=== PATIENT | male | born 1985 | race Caucasian/White ===

== ENCOUNTER 2016-10-23 14:56 | Emergency (ER) | payer BC ==
[~2016-10-23] VITALS: Ht 190.5 cm; Wt 122.5 kg
[~2016-10-23 14:56] MED LIST: CIPR-225 PO; DICY20TA10; LISI1TAB10; METR500T PO; ONDA4TAB10
--- NOTE | 2016-10-23 18:06 | ED EENT ---
History of Present Illness General Chief Complaint: Oral/Throat Problems Stated Complaint: STREP SYMPTOMS Nursing Triage Note: Pt c/o sore throat x2 days. Pt reporting he thinks he may have strep throat and would like a strep culture done. Source: patient Exam Limitations: no limitations (VIOLETTE ROBERTS) History of Present Illness Time seen by provider: 18:06 Initial Comments patient seen, evaluated, and patient care provided by Dr. Newby. (VIOLETTE ROBERTS) Time seen by provider: 17:55 Initial Comments C/O SORE THROAT X 2 DAYS HAD SUBJECTIVE FEVER AT 0500 THIS AM NO OTHER SYMPTOMS HAS NOT TAKEN ANYTHING FOR SYMPTOMS HAS HISTORY OF "STREP" AND THIS FEELS THE SAME PT STATES HE WAS TREATED 3-4 WEEKS AGO FOR POSSIBLE DIVERTICULITIS WITH UNKNOWN ANTIBIOTICS--NO CT DONE, THOSE SYMPTOMS HAVE RESOLVED. PCP: FERMÍN (CORNELIA NEWBY DO) Allergies and Home Medications Allergies Coded Allergies: No Known Drug Allergies (Unverified , 09/17/15) Home Medications Amoxicillin/Potassium Clav 1 Each Tablet, 1 EACH PO BID, #20 Prescribed by: CORNELIA NEWBY on 10/23/16 1826 Ciprofloxacin HCl 500 Mg Tablet, 500 MG PO BID, #14 Prescribed by: STIVEN WEBBER on 09/17/15 1449 Dicyclomine HCl 20 Mg Tablet, #30 (Reported) Lisinopril/Hydrochlorothiazide 1 Each Tablet, #90 (Reported) Metronidazole 500 Mg Tablet, 500 MG PO TID, #21 Prescribed by: STIVEN WEBBER on 09/17/15 1449 Ondansetron HCl 4 Mg Tablet, #10 (Reported) Review of Systems Constitutional: see HPI, chills, fever Eyes: No Symptoms Reported Ears: No Symptoms Reported Nose: no symptoms reported Mouth: no symptoms reported Throat: see HPI, pain, denies neck stiffness, denies hoarse, denies muffled, painful swallowing, denies difficulty with fluids Respiratory: no symptoms reported, No cough, No short of breath Cardiovascular: no symptoms reported Gastrointestinal: no symptoms reported, No abdominal pain, No diarrhea, No nausea, No vomiting Musculoskeletal: no symptoms reported, No muscle pain Skin: no symptoms reported, No rash Neurological: No Symptoms Reported Hematologic/Lymphatic: No Symptoms Reported Immunological/Allergic: no symptoms reported (CORNELIA NEWBY DO) Past Yklfqur-Lgtaia-Sxwcxo Hx Patient Social History Alcohol Use: Denies Use Recreational Drug Use: No Smoking Status: Never a Smoker Recent Foreign Travel: No Contact w/Someone Who Travel: No Recent Infectious Disease Expo: No (VIOLETTE ROBERTS) Alcohol Use: Denies Use Recreational Drug Use: No Smoking Status: Never a Smoker (WENDY,CORNELIA K DO) Surgeries HX Surgeries: No (VIOLETTE ROBERTS) HX Surgeries: No (WENDY,CORNELIA K DO) Respiratory Hx Respiratory Disorders: No (VIOLETTE ROBERTS) Hx Respiratory Disorders: No (WENDY,CORNELIA K DO) Cardiovascular Hx Cardiac Disorders: Yes Cardiac Disorders: Hypertension (VIOLETTE ROBERTS) Hx Cardiac Disorders: Yes Cardiac Disorders: Hypertension (WENDY,CORNELIA K DO) Neurological Hx Neurological Disorders: No (VIOLETTE ROBERTS) Hx Neurological Disorders: No (WENDY,CORNELIA K DO) Reproductive System Hx Reproductive Disorders: No (WENDY,CORNELIA K DO) Genitourinary Hx Genitourinary Disorders: No (WENDY,CORNELIA K DO) Gastrointestinal Hx Gastrointestinal Disorders: Yes (DIARRHEA ) (VIOLETTE ROBERTS) Hx Gastrointestinal Disorders: No (POSSIBLE DIVERTICULITIS--NO CT DONE, PER PT) (WENDY,CORNELIA K DO) Musculoskeletal Hx Musculoskeletal Disorders: Yes Musculoskeletal Disorders: Back Injury (VIOLETTE ROBERTS) Hx Musculoskeletal Disorders: No (WENDY,CORNELIA K DO) Endocrine Hx Endocrine Disorders: No (VIOLETTE ROBERTS) Hx Endocrine Disorders: No (WENDY,CORNELIA K DO) HEENT HX ENT Disorders: Yes (OCCASIONAL "STREP") (WENDY,CORNELIA K DO) Cancer Hx Cancer: No (VIOLETTE ROBERTS) Hx Cancer: No (WENDY,CORNELIA K DO) Psychosocial Hx Psychiatric Problems: Yes Behavioral Health Disorders: ADD/ADHD (VIOLETTE ROBERTS) Hx Psychiatric Problems: No (WENDY,CORNELIA K DO) Integumentary HX Skin/Integumentary Disorder: No (WENDY,CORNELIA K DO) Blood Transfusions Hx Blood Disorders: No (WENDY,CORNELIA K DO) Physical Exam Vital Signs Vital Sign - Last 12Hours 10/23/16 15:28 Temp 100.5 Pulse 121 Resp 18 B/P (MAP) 112/74 Pulse Ox 96 O2 Delivery Room Air (CORNELIA NEWBY DO) General Appearance: WD/WN, no apparent distress Eyes: bilateral eye EOMI, bilateral eye PERRL, bilateral eye normal inspection Ears: bilateral ear other (TM'S PINK BILATERALLY) Nose: normal inspection Mouth/Throat: No tonsillar exudate, No trismus, No uvula swelling, No voice changes, other (PHARYNX ERYTHEMATOUS) Neck: non-tender, full range of motion, supple, lymphadenopathy (R) (MILD ANTERIOR), lymphadenopathy (L) (MILD ANTERIOR) Cardiovascular: regular rate, rhythm, no edema, no murmur Respiratory: normal breath sounds, no respiratory distress, no accessory muscle use Gastrointestinal: normal bowel sounds, non tender, soft, no organomegaly 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, no motor/sensory deficits, alert, normal mood/affect, oriented x 3 Skin: normal color, warm/dry, No rash (CORNELIA NEWBY DO) Progress/Results/Core Measures Results/Orders Lab Results Laboratory Tests Test 10/23/16 17:47 Range/Units Group A Streptococcus Screen NEGATIVE NEGATIVE (CORNELIA NEWBY DO) My Orders Orders - WENDYCORNELIA Griselda DO Amoxicillin/Clavulanate Tablet (Augmenti (10/23/16 18:30) Amoxicillin/Clavulanate Tablet (Augmenti (10/23/16 18:25) (CORNELIA NEWBY ) Vital Signs/I&O Vital Sign - Last 12Hours 10/23/16 15:28 Temp 100.5 Pulse 121 Resp 18 B/P (MAP) 112/74 Pulse Ox 96 O2 Delivery Room Air (CORNELIA NEWBY DO) Blood Pressure Mean: 87 Departure Impression Impression: Primary Impression: Pharyngitis Disposition: 01 HOME, SELF-CARE Condition: Stable Departure-Patient Inst. Referrals: [facility] (PCP/Family) Primary Care Physician Patient Instructions: Sore Throat, Adult (DC) Add. Discharge Instructions: ALTERNATE TYLENOL AND MOTRIN EVERY 2-3 HOURS NEEDED FOR PAIN OR FEVER LOTS OF CLEAR LIQUIDS FREQUENT SALT WATER GARGLES FOLLOW UP WITH [facility] IN 3-4 DAYS IF NO BETTER All discharge instructions reviewed with patient and/or family. Voiced understanding. Scripts Amoxicillin/Potassium Clav (Augmentin 875-125 Tablet) 1 Each Tablet 1 EACH PO BID for INFECTION, #20 TAB Prov: CORNELIA NEWBY DO 10/23/16 VIOLETTE ROBERTS Oct 23, 2016 18:06 CORNELIA NEWBY DO Oct 23, 2016 18:26
[2016-10-23] MEDS ORDERED: AUGMENTIN 875 MG TAB (AMOXICILLIN/CLAVULANATE) ONE (18:25)
[2016-10-23] MEDS ORDERED: AMOX-358 PO (18:26)
[2016-10-23] MEDS ORDERED: AUGMENTIN 875 MG TAB (AMOXICILLIN/CLAVULANATE) PO SCH (18:30)
[2016-10-23 18:34] VITALS: BP 120/69
== END 2016-10-23 18:34 | disposition home or self-care (01) ==
LOC: EDUNIT# 14:56 → ER 14:57
DX: J02.9 Acute pharyngitis, unspecified (principal); F90.9 Attention-deficit hyperactivity disorder, unspecified type; I10 Essential (primary) hypertension; Z87.828 Personal history of other (healed) physical injury and trauma
CPT/HCPCS: 87430; 99283

== ENCOUNTER → 2017-03-10 | Outpatient (CLI) | payer BC ==
[~2017-03-10] MED LIST changes: +AMOX-358 PO
--- NOTE | 2017-03-10 15:02 | Diagnostic Imaging Report ---
PROCEDURE: MRI lumbar spine. TECHNIQUE: Multiplanar, multisequence MRI of the lumbar spine was performed without contrast. INDICATION: Chronic low back pain radiating into right leg. FINDINGS: Good alignment of the vertebral bodies. Body height is well maintained. Marrow signal is normal throughout. No evidence of pars defect. The conus medullaris and cauda equina appear normal. There is no bony spinal stenosis. L1-L2, L2-L3 discs appear normal. No evidence of facet or ligamentous hypertrophy. L3-L4: There is desiccation of the disc. There is mild central disc herniation which is causing midline ventral extradural compression. No significant encroachment is seen into the lateral recesses or neural foramen. L4-L5: There is a central radial tear causing midline ventral extradural compression. This does not extend into the lateral recesses at this time. No significant facet or ligamentous hypertrophy. L5-S1: Disc appears normal. Facets are normal. Paraspinal soft tissues appear normal. IMPRESSION: 1. There are central disc herniations with radial tears at L3-L4 and L4-L5. This is slightly more prominent at the L4-L5 level. Dictated by: Dictated on workstation # [id number]
== END ==
LOC: RAD 13:54
PROVIDERS: ATTEND Nurse Practitioner Community Health
DX: S33.5XXA Sprain of ligaments of lumbar spine, initial encounter (principal); M51.26 Other intervertebral disc displacement, lumbar region
CPT/HCPCS: 72148

== ENCOUNTER 2018-01-14 17:23 | Emergency (ER) | payer BC ==
[~2018-01-14] VITALS: Ht 177.8 cm; Wt 97.5 kg
[~2018-01-14 17:23] MED LIST changes: -LISI1TAB10; +LISI1TAB10 PO
[2018-01-14] MEDS ORDERED: ONDANSETRON 4 MG/2 ML (SDV) Z0FRAN IVP ONE (17:45)
[2018-01-14] MEDS ORDERED: NS IV 1000 ML 1,000 ML IV ONE (17:45)
--- NOTE | 2018-01-14 17:57 | ED Abdominal Pain ---
General Chief Complaint: Abdominal/GI Problems Stated Complaint: STOMACH PAIN,NAUSEA,VOMITTING Nursing Triage Note: pt reports he woke up this morning with burning in his right upper abd. he is concerned it is his gallbladder, as he has had a HIDA scan approx 1-2 months ago that showed low function. has also been exposed to gi virus at home. reports one episode of dry heaving. multiple episodes of slimey diarrhea. Sepsis Screen: No Definite Risk Source of Information: Patient, Old Records Exam Limitations: No Limitations (LISA CA MD) History of Present Illness Date Seen by Provider: Jan 14, 2018 Time Seen by Provider: 17:34 Initial Comments This 32-year-old gentleman presents to the emergency room with complaints of nausea, vomiting, diarrhea, and right upper quadrant pain. He has been having intermittent episodes for the past 6-8 months. He had a hepatobiliary scan performed in November which showed a decreased ejection fraction. Pain does seem to occur more often after eating, especially fatty or greasy foods. He states his children had a gastrointestinal illness over recently. However, he believes this to be a "gallbladder attack." Patient last had a Gatorade at 17: 10. His last solid foods were yesterday. This episode of pain started yesterday. Patient states his diarrhea is "slime". His vomiting has become dry heaving. He denies any alcohol or tobacco use. He is notably tachycardic on assessment. His primary care provider is Philip Torrez. (LISA CA MD) Allergies and Home Medications Allergies Coded Allergies: No Known Drug Allergies (Unverified , 09/17/15) Home Medications Lisinopril/Hydrochlorothiazide 1 Each Tablet, 1 TAB PO DAILY, (Reported) Patient Home Medication List Home Medication List Reviewed: Yes (LISA CA MD) Home Medication List Reviewed: Yes (SWATHI CUMMINGS) Review of Systems Review of Systems Constitutional: no symptoms reported EENTM: No Symptoms Reported Respiratory: No Symptoms Reported Cardiovascular: See HPI Gastrointestinal: See HPI Genitourinary: No Symptoms Reported Musculoskeletal: no symptoms reported Skin: no symptoms reported Psychiatric/Neurological: No Symptoms Reported Endocrine: No Symptoms Reported Hematologic/Lymphatic: No Symptoms Reported (LISA CA MD) Past Cwuyhnr-Tiexxq-Ssphvs Hx Past Med/Social Hx: Reviewed and Corrections made (LISA CA MD) Patient Social History Alcohol Use: Denies Use Recreational Drug Use: No Smoking Status: Never a Smoker Recent Foreign Travel: No Contact w/Someone Who Travel: No Recent Infectious Disease Expo: No Recent Hopitalizations: No (LISA CA MD) Seasonal Allergies Seasonal Allergies: No (LISA CA MD) Past Medical History Surgeries: No Respiratory: No Cardiac: Yes Hypertension Neurological: No Reproductive Disorders: No Gastrointestinal: Yes Gall Bladder Disease (biliary dyskinesia) Musculoskeletal: Yes Back Injury Endocrine: No Cancer: No Psychosocial: Yes ADD/ADHD Integumentary: No Blood Disorders: No (LISA CA MD) Physical Exam Vital Signs Vital Signs - First Documented 01/14/18 17:36 Temp 97.0 Pulse 131 Resp 20 B/P (MAP) 118/90 (99) Pulse Ox 97 O2 Delivery Room Air (SWATHI CUMMINGS) Vital Signs Capillary Refill : Less Than 3 Seconds (LISA CA MD) Height/Weight/BMI Height: 5'10.00" Weight: 215lbs. oz. 97.183964eo; BMI Method:Estimated General Appearance: WD/WN, mild distress HEENT: PERRL/EOMI, normal ENT inspection, pharynx normal Neck: normal inspection Respiratory: lungs clear, normal breath sounds, no respiratory distress, no accessory muscle use Cardiovascular: no edema, no murmur, tachycardia Gastrointestinal: normal bowel sounds, soft, tenderness (right upper quadrant tender to percussion and palpation) Extremities: normal inspection, no pedal edema Neurologic/Psychiatric: litigation legal assistant II-XII nml as tested, no motor/sensory deficits, alert, normal mood/affect, oriented x 3 Skin: normal color, warm/dry (LISA CA MD) Progress/Results/Core Measures Results/Orders Lab Results Laboratory Tests Test 01/14/18 17:52 01/14/18 18:00 Range/Units Urine Color YELLOW Urine Clarity CLEAR Urine pH 5 5-9 Urine Specific Harper 1.020 1.016-1.022 Urine Protein NEGATIVE NEGATIVE Urine Glucose (UA) NEGATIVE NEGATIVE Urine Ketones NEGATIVE NEGATIVE Urine Nitrite NEGATIVE NEGATIVE Urine Bilirubin NEGATIVE NEGATIVE Urine Urobilinogen NORMAL NORMAL MG/DL Urine Leukocyte Esterase NEGATIVE NEGATIVE Urine RBC (Auto) NEGATIVE NEGATIVE Urine RBC NONE /HPF Urine WBC NONE /HPF Urine Crystals NONE /LPF Urine Bacteria NEGATIVE /HPF Urine Casts NONE /LPF Urine Mucus LARGE H /LPF Urine Culture Indicated NO White Blood Count 10.4 4.3-11.0 10^3/uL Red Blood Count 5.27 4.35-5.85 10^6/uL Hemoglobin 16.4 13.3-17.7 G/DL Hematocrit 45 40-54 % Mean Corpuscular Volume 85 80-99 FL Mean Corpuscular Hemoglobin 31 25-34 PG Mean Corpuscular Hemoglobin Concent 37 H 32-36 G/DL Red Cell Distribution Width 12.9 10.0-14.5 % Platelet Count 282 130-400 10^3/uL Mean Platelet Volume 10.1 7.4-10.4 FL Neutrophils (%) (Auto) 88 H 42-75 % Lymphocytes (%) (Auto) 6 L 12-44 % Monocytes (%) (Auto) 5 0-12 % Eosinophils (%) (Auto) 0 0-10 % Basophils (%) (Auto) 0 0-10 % Neutrophils # (Auto) 9.2 H 1.8-7.8 X 10^3 Lymphocytes # (Auto) 0.6 L 1.0-4.0 X 10^3 Monocytes # (Auto) 0.5 0.0-1.0 X 10^3 Eosinophils # (Auto) 0.0 0.0-0.3 10^3/uL Basophils # (Auto) 0.0 0.0-0.1 10^3/uL Neutrophils % (Manual) 85 % Lymphocytes % (Manual) 11 % Monocytes % (Manual) 3 % Eosinophils % (Manual) 1 % Sodium Level 135 135-145 MMOL/L Potassium Level 4.1 3.6-5.0 MMOL/L Chloride Level 103 98-107 MMOL/L Carbon Dioxide Level 19 L 21-32 MMOL/L Anion Gap 13 5-14 MMOL/L Blood Urea Nitrogen 16 7-18 MG/DL Creatinine 1.06 0.60-1.30 MG/DL Estimat Glomerular Filtration Rate > 60 BUN/Creatinine Ratio 15 Glucose Level 138 H 70-105 MG/DL Calcium Level 9.8 8.5-10.1 MG/DL Corrected Calcium 8.5-10.1 MG/DL Total Bilirubin 0.9 0.1-1.0 MG/DL Aspartate Amino Transf (AST/SGOT) 35 H 5-34 U/L Alanine Aminotransferase (ALT/SGPT) 66 H 0-55 U/L Alkaline Phosphatase 76 40-136 U/L C-Reactive Protein High Sensitivity 0.94 H 0.00-0.50 MG/DL Total Protein 8.2 6.4-8.2 GM/DL Albumin 5.0 H 3.2-4.5 GM/DL Lipase 25 8-78 U/L (SWATHI CUMMINGS) My Orders Orders - SWATHI CUMMINGS Pantoprazole Injection (Protonix Injecti (01/14/18 19:15) Us Gallbladder 44084 (01/14/18 19:09) (SWATHI CUMMINGS) Medications Given in ED Current Medications Medications Dose Ordered Sig/Ernesto Route Start Time Stop Time Status Last Admin Dose Admin Ondansetron HCl 8 mg ONCE ONCE IVP 01/14/18 17:45 01/14/18 17:47 DC 01/14/18 18:04 8 MG Sodium Chloride 1,000 ml @ 0 mls/hr Q0M ONCE IV 01/14/18 17:45 01/14/18 17:47 DC 01/14/18 18:04 0 MLS/HR (SWATHI CUMMINGS) Vital Signs/I&O 01/14/18 17:36 Temp 97.0 Pulse 131 Resp 20 B/P (MAP) 118/90 (99) Pulse Ox 97 O2 Delivery Room Air (SWATHI CUMMINGS) Blood Pressure Mean: 99 Progress Progress Note : Time: 18:00 Progress Note Patient seen and examined. Chart reviewed. Zofran was ordered for treatment of nausea. Patient declines pain medications at this time. Lab workup is underway. IV fluids are infusing. Care of this patient is being transitioned to Dr. Cummings at this time. (LISA CA MD) Progress Note : Time: 19:10 Progress Note Care of the patient was assumed at shift change. Patient is resting comfortably 5 out of 10 pain not requesting anything for pain medicine. He's gotten some nausea medicine and he says his nausea is better. We reviewed his labs with him and discussed having him follow up either with general surgery tomorrow or his primary care doctor. Patient is not comfortable with the history of gallbladder dyskinesis and would like ultrasound done tonight and while his white count is not asserted elevated it is at the upper limit of normal. His pain still localizes to his right upper quadrant. We'll perform an ultrasound of the gallbladder and if it looks normal this would most likely then be just gastroenteritis that should resolve on its own over the next 3-5 days with symptomatic support. Upon further discussion the patient is decided he does not want the ultrasound is okay with the follow-up outpatient plan. (SWATHI CUMMINGS) Diagnostic Imaging Diagonstic Imaging: Ultrasound Plain Films/CT/US/NM/MRI: abdomen (right upper quadrant) Reviewed: Reviewed by Me (SWATHI CUMMINGS) Departure Impression Primary Impression: Gastroenteritis and colitis, viral Additional Impression: Biliary dyskinesia Disposition: 01 HOME, SELF-CARE Condition: Stable Departure-Patient Inst. Decision time for Depature: 19:14 (SWATHI CUMMINGS) Referrals: JOSH WILLIAMSON MD (PCP) Primary Care Physician BRIANNA TORREZ (Family) Primary Care Physician Patient Instructions: [id number] Add. Discharge Instructions: Use the Zofran 1 tablet every 6 hours as needed for nausea. If you're having pain you can take Tylenol 1000 mg or ibuprofen 800 mg. Take some omeprazole or pantoprazole daily for the next couple days to help with acid reflux. See your primary care provider this week for follow-up. If your symptoms become intractable despite the medicines or you begin to have fevers above 102.5 you should get in to be seen the same day or you can return to the ER for evaluation. All discharge instructions reviewed with patient and/or family. Voiced understanding. Scripts Ondansetron (Ondansetron Odt) 4 Mg Tab.rapdis 4 MG PO Q6H PRN for NAUSEA/VOMITING, #8 TAB 0 Refills Prov: SWATHI CUMMINGS 01/14/18 Work/School Note: Work Release Form Date Seen in the Emergency Department: Jan 14, 2018 Return to Work: Jan 16, 2018 Restrictions: No Restrictions Copy Copies To 1: ALEXA BARRON JOSHUA T MD Jan 14, 2018 17:57 SWATHI CUMMINGS Jan 14, 2018 19:12
[2018-01-14 17:58] LABS: BILIRUBIN,URINE NEGATIVE (NEGATIVE); CLARITY,URINE CLEAR; COLOR,URINE YELLOW; GLUCOSE, URINE (UA) NEGATIVE (NEGATIVE); KETONES,URINE NEGATIVE (NEGATIVE); LEUKOCYTE ESTERASE ,URINE NEGATIVE (NEGATIVE); NITRITE,URINE NEGATIVE (NEGATIVE); PH,URINE 5 (5-9); PROTEIN,URINE NEGATIVE (NEGATIVE); UROBILINOGEN,URINE NORMAL (NORMAL)
[2018-01-14 18:09] LABS: BASOPHILS % (AUTO) 0 % (0-10); EOSINOPHILS % (AUTO) 0 % (0-10); HEMATOCRIT 45 % (40-54); HEMOGLOBIN 16.4 G/DL (13.3-17.7); LYMPHOCYTES # (AUTO) 0.6 X 10^3 (1.0-4.0); LYMPHOCYTES % (AUTO) 6 % (12-44); MEAN CORPUSCULAR HEMOGLOBIN 31 PG (25-34); MEAN CORPUSCULAR HGB CONC 37 G/DL (32-36); MEAN CORPUSCULAR VOLUME 85 FL (80-99); MEAN PLATELET VOLUME 10.1 FL (7.4-10.4); MONOCYTES # (AUTO) 0.5 X 10^3 (0.0-1.0); MONOCYTES % (AUTO) 5 % (0-12); NEUTROPHILS # (AUTO) 9.2 X 10^3 (1.8-7.8); NEUTROPHILS % (AUTO) 88 % (42-75); PLATELET COUNT 282 10^3/uL (130-400); RED BLOOD COUNT 5.27 10^6/uL (4.35-5.85); RED CELL DISTRIBUTION WIDTH 12.9 % (10.0-14.5); WHITE BLOOD COUNT 10.4 10^3/uL (4.3-11.0)
[2018-01-14 18:25] LABS: BACTERIA,URINE NEGATIVE /HPF
[2018-01-14 18:27] LABS: ALANINE AMINOTRANSFERASE 66 U/L (0-55); ALKALINE PHOSPHATASE 76 U/L (40-136); BILIRUBIN,TOTAL 0.9 MG/DL (0.1-1.0); BUN/CREATININE RATIO 15; CALCIUM 9.8 MG/DL (8.5-10.1); CARBON DIOXIDE 19 MMOL/L (21-32); CHLORIDE 103 MMOL/L (98-107); CREATININE SERUM 1.06 MG/DL (0.60-1.30); GFR ESTIMATED > 60; GLUCOSE 138 MG/DL (70-105); LIPASE 25 U/L (8-78); POTASSIUM 4.1 MMOL/L (3.6-5.0); SODIUM 135 MMOL/L (135-145); TOTAL PROTEIN 8.2 GM/DL (6.4-8.2)
[2018-01-14 18:49] LABS: EOSINOPHILS % (MANUAL) 1 %; LYMPHOCYTES % (MANUAL) 11 %; MONOCYTES % (MANUAL) 3 %; NEUTROPHILS % (MANUAL) 85 %
[2018-01-14] MEDS ORDERED: PANTOPRAZOLE 40 MG (PROTONIX) VIAL IV ONE (19:15)
[2018-01-14] MEDS ORDERED: ONDA4TAB11 PO (19:16)
[2018-01-14] MEDS ORDERED: RX-ONDANSETRON 4 MG ODT (ZOFRAN) PPK #4 PO STA (19:18)
[2018-01-14 19:32] VITALS: BP 142/89
== END 2018-01-14 19:32 | disposition home or self-care (01) ==
LOC: EDUNIT# 17:23 → ER 17:25
DX: A08.4 Viral intestinal infection, unspecified (principal); K82.8 Other specified diseases of gallbladder; I10 Essential (primary) hypertension; F90.9 Attention-deficit hyperactivity disorder, unspecified type; Z87.448 Personal history of other diseases of urinary system; Z87.19 Personal history of other diseases of the digestive system
CPT/HCPCS: 36415; 80053; 81000; 83690; 85007; 85027; 86141; 96374

== ENCOUNTER → 2019-04-12 | Outpatient (CLI) | payer BC ==
[~2019-04-12] MED LIST changes: +ONDA4TAB11 PO
--- NOTE | 2019-04-12 09:35 | Diagnostic Imaging Report ---
PROCEDURE: MRI lumbar spine. TECHNIQUE: Multiplanar, multisequence MRI of the lumbar spine was performed without contrast. INDICATION: Chronic low back pain. Correlation is made with prior MRI from 03/10/2017. FINDINGS: Curvature and alignment of the lumbar spine is normal. Vertebral body heights are maintained. The marrow signal intensity is unremarkable. No geographic marrow lesion or fracture is detected. There is some disc desiccation L3-L4 and L4-L5 levels compatible with degenerative disc disease. This is similar to prior exam. Remaining lumbar discs demonstrate normal height and hydration. The conus is unremarkable at the L1 level. T12-L1: No central canal or neural foraminal narrowing is detected. L1-T2: No central canal or neural foraminal narrowing is seen. L2-L3: No central canal or neural foraminal narrowing is identified. L3-L4: Broad-based disc bulging indents the ventral thecal sac, similar to prior exam. This does result in mild narrowing of the canal. There is bilateral lateral recess narrowing as well as moderate bilateral neural foraminal narrowing. L4-L5: Broad-based midline disc bulging indents the ventral thecal sac, similar to prior exam. No significant central canal narrowing is seen, however there is moderate bilateral lateral recess stenosis as well as moderate bilateral neural foraminal stenosis. L5-S1: There are hypertrophic facet changes particularly on the left. No disc protrusion is seen. No central canal or neural foraminal stenosis is identified. Paraspinous tissues are unremarkable. IMPRESSION: L3-L4 and L4-L5 degenerative disc disease with broad-based disc bulging, as described. There is central canal, lateral recess and neural foraminal narrowing described level by level above. Dictated by: Dictated on workstation # [id number]
== END ==
LOC: RAD 08:44
PROVIDERS: ATTEND Nurse Practitioner Community Health
DX: M51.16 Intervertebral disc disorders with radiculopathy, lumbar region (principal); M47.817 Spondylosis without myelopathy or radiculopathy, lumbosacral region
CPT/HCPCS: 72148

== ENCOUNTER → 2019-10-02 | Outpatient (CLI) | payer BC, OTHER ==
[~2019-10-02] MED LIST changes: -LISI1TAB10 PO; +LISI1TAB26 PO; +ONDA-105; -ONDA4TAB10
--- NOTE | 2019-10-02 15:10 | Diagnostic Imaging Report ---
MRI LT LOWER EXT JOINT W/O TECHNIQUE: Multiplanar, multisequence MR imaging of the left knee was performed without contrast. COMPARISON: None available. INDICATION: Left knee pain. No known injury. FINDINGS: MENISCI Medial meniscus: Focal nondisplaced free edge tearing in the central aspect of the body of medial meniscus. There is likely a horizontal cleavage tear extending to the periphery of the body of the medial meniscus at this site as well. Lateral meniscus: Normal. LIGAMENTS ACL: ACL is intact with interstitial T2 hyperintense signal along its fibers. PCL: Intact. MCL: Intact. LCL: The lateral collateral ligamentous complex is intact. EXTENSOR MECHANISM The extensor mechanism is intact. CARTILAGE Medial compartment: Low-grade partial-thickness chondral fibrillation in the central weightbearing aspect of the medial compartment. Lateral compartment: The lateral compartment articular cartilage is preserved without high-grade chondromalacia. Patellofemoral compartment: The patellofemoral articular cartilage is well preserved without high-grade chondromalacia. BONE No fracture, stress fracture or osteonecrosis. SOFT TISSUE No knee effusion or Hannah's cyst. IMPRESSION: 1. Nondisplaced free edge radial tear in the body of the medial meniscus with potential superimposed horizontal cleavage tear. 2. Low-grade partial-thickness chondral fibrillation in the weightbearing aspect of medial compartment. Remainder of the articular cartilage is well preserved. 3. The cruciate and collateral ligaments are intact. Dictated by: Dictated on workstation # [id number]
== END ==
LOC: RAD 14:05
PROVIDERS: ATTEND Nurse Practitioner Community Health
DX: S83.242A Other tear of medial meniscus, current injury, left knee, initial encounter (principal); X58.XXXA Exposure to other specified factors, initial encounter
CPT/HCPCS: 73721

== ENCOUNTER → 2021-08-09 | Outpatient (CLI) | payer BC ==
[~2021-08-09] MED LIST changes: +DICY20TA; -DICY20TA10; -LISI1TAB26 PO; +LISI1TAB48 PO
--- NOTE | 2021-08-09 17:55 | Diagnostic Imaging Report ---
PROCEDURE: MRI lumbar spine. TECHNIQUE: Multiplanar, multisequence MRI of the lumbar spine was performed without contrast. INDICATION: Left-sided sciatica and back pain. COMPARISON: Exam is compared with lumbar MR 04/12/2019. FINDINGS: Lumbar statures are stable and normal. The alignment is anatomic. No abnormal marrow signal. Conus appeared normal. There is normal dispersal of the nerves of the cauda equina. There was no paravertebral mass, hemorrhage, or fluid collection. The T12 L1, L1-L2, and L2-L3 levels and discs are stable and normal without stenosis. L3-L4: Similar magnitude of disc desiccation, stature loss, and broad-based midline posterior bulge indent the ventral thecal sac with moderate canal stenosis as well as at least mild impingement upon the bilateral lateral recesses. The neural foramina showed a very mild degree of stable narrowing. L4-L5: Disc desiccation, stature loss, and right paramedian broad-based bulge appear unchanged from prior indenting the ventral thecal sac and resulting in moderate right and mild left lateral recess impingement as well as [id number] right and mild left neural foraminal stenosis. L5-S1: This level and disc are stable and normal. No stenosis. IMPRESSION: 1. Disc desiccation and broad-based bulges at L3-L4 and L4-L5 result in unchanged canal, foraminal, and recess stenoses. 2. Normal alignment. No acute appearing abnormality. Remaining levels normal. No adverse development. Dictated by: Dictated on workstation # [id number]
== END ==
LOC: RAD 14:45
PROVIDERS: ATTEND Physician Assistant
DX: M51.26 Other intervertebral disc displacement, lumbar region (principal); M51.36 Other intervertebral disc degeneration, lumbar region; M48.061 Spinal stenosis, lumbar region without neurogenic claudication
CPT/HCPCS: 72148

== ENCOUNTER → 2022-07-18 | Outpatient (CLI) | payer BC ==
[~2022-07-18] MED LIST changes: +CATHETER FLUSH 10 ML SYR IVP PRN
--- NOTE | 2022-07-18 15:57 | Diagnostic Imaging Report ---
INDICATION: Right upper quadrant pain. FINDINGS: The patient was administered 5.5 mCi technetium 99m Choletec intravenously and imaging over the abdomen was performed. At 45 minutes, the patient ingested Ensure and the gallbladder ejection fraction was calculated. There is homogeneous uptake of activity by the liver with prompt excretion of activity into the common duct and gallbladder. There is normal passage of activity into the small bowel. The gallbladder ejection fraction is abnormally low at 9.5%. Normal values are 35% or greater. IMPRESSION: 1. Patent cystic duct and common bile duct. 2. Low gallbladder ejection fraction of 9.5%. Dictated by: Dictated on workstation # [id number]
== END ==
LOC: CARD 11:59
PROVIDERS: ATTEND Nurse Practitioner Family
DX: R10.11 Right upper quadrant pain (principal)
CPT/HCPCS: 78227; A9537